=== PATIENT | female | born 1960 | race Caucasian/White ===

== ENCOUNTER → 2018-05-19 | Day surgery (SDC) | payer OTHER ==
[~2018-05-19] MED LIST: ALTOPREV20 MG; ATENOLOL25 MG; DIAZEPAM10 MG PO; FOSAMAX70 MG; MEDROLPACK PO
== END | disposition home or self-care (01) ==
LOC: AMB-ENDOS 05-12 10:52
DX: K57.30 Diverticulosis of large intestine without perforation or abscess without bleeding (principal); K64.1 Second degree hemorrhoids; K64.4 Residual hemorrhoidal skin tags; K57.32 Diverticulitis of large intestine without perforation or abscess without bleeding

== ENCOUNTER 2019-02-06 09:28 | Emergency (ER) | payer OTHER ==
[~2019-02-06] VITALS: Ht 167.6 cm; Wt 72.6 kg
[2019-02-06] MEDS ORDERED: TENORMIN50 M1 (09:47)
== END 2019-02-06 17:54 | disposition home or self-care (01) ==
LOC: ER 09:28
DX: N39.0 Urinary tract infection, site not specified (principal); R10.32 Left lower quadrant pain; M54.5 Low back pain

== ENCOUNTER 2019-05-16 05:55 | Day surgery (SDC) | payer OTHER ==
[~2019-05-16 05:55] MED LIST changes: +AMITRIPTYLINE H10 MG; +CALTRATE 600+D1 EACH; +TENORMIN50 M1; +TOPROL XL25 M1; +VITAMIN B-121000 MC2; +VITAMIN D22000 UNIT
== END 2019-05-16 10:50 | disposition home or self-care (01) ==
LOC: CIR.AMB 05:55
DX: D17.1 Benign lipomatous neoplasm of skin and subcutaneous tissue of trunk (principal)

== ENCOUNTER 2019-06-15 00:06 | Emergency (ER) | payer OTHER ==
[~2019-06-15] VITALS: Ht 170.2 cm; Wt 77.1 kg
[2019-06-15] MEDS ORDERED: LEVSIN/SL0.125 MG SL (04:25)
[2019-06-15] MEDS ORDERED: PEPCID40 MG PO (04:25)
[2019-06-15] MEDS ORDERED: ZOFRAN4 MG PO ×2 (04:25→04:26)
== END 2019-06-15 04:46 ==
LOC: ER 00:06
DX: K52.89 Other specified noninfective gastroenteritis and colitis (principal)

== ENCOUNTER → 2020-03-11 | Outpatient (CLI) | payer OTHER ==
[~2020-03-11] MED LIST changes: +LEVSIN/SL0.125 MG SL; +PEPCID40 MG PO; +ZOFRAN4 MG PO
== END | disposition home or self-care (01) ==
LOC: SONOGRAMA 12:54
PROVIDERS: ATTEND Otolaryngology
DX: E04.1 Nontoxic single thyroid nodule (principal)

== ENCOUNTER 2020-03-18 14:17 | Outpatient (CLI) | payer OTHER | END 2020-03-18 16:00 | disposition home or self-care (01) | LOC: OFIC 805 14:17 | PROVIDERS: ATTEND Otolaryngology | DX: M54.2 Cervicalgia (principal); R22.1 Localized swelling, mass and lump, neck; R42 Dizziness and giddiness; K21.9 Gastro-esophageal reflux disease without esophagitis ==

== ENCOUNTER → 2020-04-29 | Outpatient (CLI) | payer OTHER | END | disposition home or self-care (01) | LOC: OFIC 805 13:00 | PROVIDERS: ATTEND Otolaryngology | DX: R42 Dizziness and giddiness (principal); R22.1 Localized swelling, mass and lump, neck ==

== ENCOUNTER 2021-04-02 07:35 | Outpatient (CLI) | payer OTHER | END 2021-04-02 07:54 | disposition home or self-care (01) | LOC: SONOGRAMA 07:35 → MAMO-SONO 08:30 | PROVIDERS: ATTEND Surgery | DX: E04.2 Nontoxic multinodular goiter (principal) ==

== ENCOUNTER 2024-05-22 10:05 | Outpatient (CLI) | payer OTHER | END 2024-05-22 10:06 | disposition home or self-care (01) | LOC: NUCLEAR 10:05 | DX: J44.9 Chronic obstructive pulmonary disease, unspecified (principal); I22.2 Subsequent non-ST elevation (NSTEMI) myocardial infarction ==